=== PATIENT | female | born 1970 | race Hispanic/Latino ===

== ENCOUNTER 2017-11-09 17:20 | Emergency (ER) | payer SELFPAY ==
[~2017-11-09] VITALS: Ht 152.4 cm; Wt 95.5 kg
[2017-11-09] MEDS ORDERED: GABAPENTIN100 MG PO (17:40)
[2017-11-09 18:49] LABS: HEMOGLOBIN 13.7 g/dl (12.0-16.0); IMMATURE GRANULOCYTES 0.6 % (0.0-1.0); MEAN CELL VOLUME 89.3 fL CALC (80.0-100.0); MEAN CORPUSCULAR HGB 29.3 pG CALC (26.0-32.0); MEAN CORPUSCULAR HGB CONC 32.8 g/L CALC (32.0-36.0); NEUT# 5.51 thou/uL (2.00-7.15); RED BLOOD COUNT 4.68 mill/uL (4.20-5.60); RED CELL DISTRI WIDTH 12.7 % (11.5-15.5)
[2017-11-09 18:49] LABS: URINE BILIRUBIN - DIPSTICK NEGATIVE (NEGATIVE); URINE BLOOD DIPSTICK MODERATE (NEGATIVE); URINE COLOR YELLOW; URINE GLUCOSE - DIPSTICK NEGATIVE (NEGATIVE); URINE KETONE NEGATIVE (NEGATIVE); URINE LEUK ESTERASE NEGATIVE (NEGATIVE); URINE NITRITE - DIPSTICK NEGATIVE (Negative); URINE PROTEIN - DIPSTICK NEGATIVE (NEG-TRACE); URINE SPECIFIC GRAVITY 1.015; URINE UROBILINOGEN - DIPSTICK 0.2 E.U./dL (0.2)
[2017-11-09 18:50] LABS: URINE CLARITY CLOUDY
[2017-11-09 18:50] LABS: HEMATOCRIT 41.8 % (37.0-47.0)
[2017-11-09 18:53] LABS: URINE BACTERIA FEW hpf; URINE SQUAMOUS EPITHELIAL CELL MODERATE EPI/hpf (0-FEW)
[2017-11-09 18:55] LABS: ALBUMIN 4.4 g/dL (3.2-5.0); AMYLASE 91 u/l (30-110); ANION GAP 16 (6-22 (CALC)); BILIRUBIN, TOTAL 0.5 mg/dL (0.0-1.4); BUN 10 mg/dL (7-17); BUN/CREATININE RATIO 14 (12-20 (CALC)); CARBON DIOXIDE 25 mmol/l (22-30); CHLORIDE 104 mmol/l (95-108); CREATININE 0.8 mg/dL (0.5-1.0); GFR > 60 ML/MIN (>=60 (CALC)); GFR FOR AFR.AMER. > 60 ML/MIN (>=60 (CALC)); LIPASE 61 u/l (23-300); SGPT/ALT 29 u/l (9-52); SODIUM 140 mmol/l (137-146); TOTAL PROTEIN 7.6 g/dL (6.3-8.2)
[2017-11-09 18:56] LABS: ALKALINE PHOSPHATASE 73 u/l (38-126); SGOT/AST 47 u/l (14-36)
[2017-11-09 19:06] LABS: MYOGLOBIN 21 ng/mL (0 - 62)
[2017-11-09] MEDS ORDERED: ZOFRAN4 MG/TAB PO (21:04)
[2017-11-09 21:17] VITALS: BP 140/67
== END 2017-11-09 21:15 | disposition home or self-care (01) | DRG 392 ==
LOC: ED 17:20
PROVIDERS: Emergency Medicine
DX: R11.10 Vomiting, unspecified (principal); R19.7 Diarrhea, unspecified; M43.6 Torticollis; R51 Headache
CPT/HCPCS: Q9967